=== PATIENT | female | born 1950 | race Caucasian/White ===

== ENCOUNTER → 2019-09-26 | Outpatient (CLI) | payer MEDICARE, BC | LOC: RAD 10:48 | DX: N18.3 Chronic kidney disease, stage 3 (moderate) (principal) ==

== ENCOUNTER → 2020-09-11 | Outpatient (CLI) | payer MEDICARE, BC | LOC: RAD 10:19 | DX: K76.0 Fatty (change of) liver, not elsewhere classified (principal); Z90.49 Acquired absence of other specified parts of digestive tract ==

== ENCOUNTER → 2020-12-03 | Outpatient (CLI) | payer MEDICARE, BC | LOC: RAD 09:59 | DX: N28.1 Cyst of kidney, acquired (principal); N39.0 Urinary tract infection, site not specified ==

== ENCOUNTER → 2021-02-13 | Outpatient (CLI) | payer MEDICARE, BC | LOC: RAD 13:45 | DX: D25.9 Leiomyoma of uterus, unspecified (principal) ==

== ENCOUNTER → 2021-06-22 | Outpatient (CLI) | payer MEDICARE, BC | LOC: RAD 11:00 → VAS 11:00 | DX: R06.00 Dyspnea, unspecified (principal) ==

== ENCOUNTER → 2021-07-20 | Outpatient (CLI) | payer MEDICARE, BC ==
[2021-07-20 12:51] LABS: ALBUMIN 4.2 g/dL (3.4-4.8); POTASSIUM 4.4 mmol/L (3.5-5.1)
[2021-07-20 12:53] LABS: CALCIUM 11.6 mg/dL (8.3-10.5)
== END ==
LOC: LAB 12:17
PROVIDERS: Internal Medicine Nephrology
DX: N18.32 Chronic kidney disease, stage 3b (principal); E83.52 Hypercalcemia

== ENCOUNTER → 2021-10-02 | Outpatient (CLI) | payer MEDICARE, BC ==
[2021-10-02 13:44] LABS: ALBUMIN 4.1 g/dL (3.4-4.8)
[2021-10-02 13:46] LABS: CALCIUM 12.4 mg/dL (8.3-10.5)
[2021-10-02 13:59] LABS: URINE APPEARANCE CLEAR; URINE BILIRUBIN NEGATIVE (NEGATIVE); URINE BLOOD NEGATIVE (NEGATIVE); URINE COLOR YELLOW; URINE GLUCOSE NEGATIVE (NEGATIVE); URINE KETONE NEGATIVE (NEGATIVE); URINE LEUKOCYTE ESTERASE TRACE (NEGATIVE); URINE NITRATE NEGATIVE (NEGATIVE); URINE PROTEIN(semi-quant) NEGATIVE (NEGATIVE); URINE UROBILINOGEN NORMAL (NORMAL)
[2021-10-03 00:07] LABS: PTH,INTACT 256.7 pg/mL (6.6-88.9)
== END ==
LOC: LAB 13:10
PROVIDERS: Physician Assistant
DX: N39.0 Urinary tract infection, site not specified (principal); N18.32 Chronic kidney disease, stage 3b; E83.52 Hypercalcemia

== ENCOUNTER → 2021-10-27 | Outpatient (CLI) | payer MEDICARE, BC ==
[2021-10-27 13:56] LABS: POTASSIUM 4.6 mmol/L (3.5-5.1)
[2021-10-27 13:57] LABS: CALCIUM 11.9 mg/dL (8.3-10.5)
[2021-10-27 14:04] LABS: MAGNESIUM 1.89 mg/dL (1.60-2.60)
== END ==
LOC: LAB 13:29
PROVIDERS: Internal Medicine Adult Congenital Heart Disease
DX: I10 Essential (primary) hypertension (principal)

== ENCOUNTER → 2022-01-28 | Outpatient (CLI) | payer MEDICARE, BC ==
[2022-01-28 14:51] LABS: ALBUMIN 4.1 g/dL (3.4-4.8)
[2022-02-01 13:21] LABS: POTASSIUM 4.7 mmol/L (3.5-5.1)
[2022-02-01 13:22] LABS: CALCIUM 11.7 mg/dL (8.3-10.5)
== END ==
LOC: LAB 14:32
PROVIDERS: Internal Medicine Nephrology
DX: Z01.89 Encounter for other specified special examinations (principal)

== ENCOUNTER → 2022-01-29 | Outpatient (CLI) | payer MEDICARE, BC | LOC: LAB 09:05 | DX: Z01.89 Encounter for other specified special examinations (principal) ==

== ENCOUNTER 2023-10-20 08:00 | Outpatient (RCR) | payer MEDICARE, BC | END 2023-11-04 23:59 | disposition home or self-care (01) | LOC: PT 08:00 | DX: M25.561 Pain in right knee (principal); M25.562 Pain in left knee ==

== ENCOUNTER 2023-11-25 13:17 | Inpatient (IN) | payer MEDICARE, BC ==
[~2023-11-25] VITALS: Ht 162.6 cm; Wt 117.0 kg
[2023-11-25 18:13] VITALS: BP 129/72
--- NOTE | 2023-11-25 18:16 | NUR ---
PATIENT ARRIVES TO [facility] VIA TRANSPORT TEAM AT 1640. PATIENT WHEELED INTO ROOM 306 AND WAS ASSISTED INTO CHAIR WITH 2 PERSON ASSISTANCE, GAIT BELT AND WALKER. PATIENT HAD PARATHYROIDECTOMY AT [facility] AND HAS A SMALL SURGICAL INCISION THAT IS OPEN TO AIR WITH NO REDNESS, DRAINAGE OR OPEN AREAS, SMALL AMOUNT OF BRUISING AROUND INCISION. IVERSON WAS REMOVED AT [facility], INSTRUCTED PATIENT AND FAMILY WE WOULD BLADDER SCAN PRN. PATIENT REPORTS LAST BM WAS 11/19, DISCUSSED WITH DR. MEADE, SHE STATED SHE WOULD START BOWEL MEDICATIONS. FAMILY DISCUSSED A FLUID RESTRICTION A PHYSICIAN HAD PUT ON PATIENT, DR. MEADE WAS TO CHECK ON THIS. PT RESTING IN CHAIR WITH FAMILY AT BEDSIDE, CALL LIGHT WITHIN REACH
[2023-11-25] MEDS ORDERED: Acetaminophen 325 MG TAB PO PRN ×2 (18:30→20:00)
[2023-11-25] MEDS ORDERED: Naloxone 0.4 MG/ML VIAL IV PRN (18:30)
[2023-11-25] MEDS ORDERED: Polyethylene Glycol 3350 Powder 17 GM PACKET PO PRN (18:30)
[2023-11-25] MEDS ORDERED: oxyCODONE 5 MG TAB PO PRN (18:30)
[2023-11-25] MEDS ORDERED: Acetaminophen 500 MG TAB PO SCH (19:20)
[2023-11-25] MEDS ORDERED: TYLENOL 325MG325 MG PO (19:21)
[2023-11-25] MEDS ORDERED: NORCO 325 MG-51 TA1 PO (19:22)
[2023-11-25] MEDS ORDERED: INSULIN LI100 UNIT/4 SQ (19:23)
[2023-11-25] MEDS ORDERED: NORVASC 10MG10 MG PO (19:23)
[2023-11-25] MEDS ORDERED: COREG 25MG25 MG/TAB PO (19:24)
[2023-11-25] MEDS ORDERED: LASIX40 M1 PO (19:24)
[2023-11-25] MEDS ORDERED: HYDRALAZINE HYD50 MG PO (19:24)
[2023-11-25] MEDS ORDERED: NOVOLOG 100U100 U/ML SQ (19:40)
[2023-11-25] MEDS ORDERED: ASPIRIN 81M81 MG/TA2 PO (19:42)
[2023-11-25] MEDS ORDERED: LEVEMIR100 U/M1 SC (19:42)
[2023-11-25] MEDS ORDERED: COL-RITE100 M1 PO (19:43)
[2023-11-25] MEDS ORDERED: BIOTIN1000 MC1 PO (19:43)
[2023-11-25] MEDS ORDERED: SYNTHROID0.075 MG PO (19:44)
[2023-11-25] MEDS ORDERED: FOLIC ACID1 MG PO (19:44)
[2023-11-25] MEDS ORDERED: COZAAR100 MG PO (19:45)
[2023-11-25] MEDS ORDERED: CRESTOR5 MG PO (19:45)
[2023-11-25] MEDS ORDERED: PRILOSEC 20MG20 MG PO (19:45)
[2023-11-25] MEDS ORDERED: MAGNESIUM400 MG PO (19:45)
[2023-11-25] MEDS ORDERED: VITAMIN B-121000 MC2 PO (19:46)
[2023-11-25] MEDS ORDERED: WELLBUTRIN XL150 M2 PO (19:47)
[2023-11-25] MEDS ORDERED: ALLOPURINOL300 M1 PO (19:47)
[2023-11-25] MEDS ORDERED: VITAMIN D21250 MCG PO (19:47)
[2023-11-25] MEDS ORDERED: Glucagon 1 MG VIAL IM PRN (20:00)
[2023-11-25] MEDS ORDERED: hydrALAZINE 25 MG TAB PO SCH (20:00)
[2023-11-25] MEDS ORDERED: Dextrose 50% Water 25 GM/50 ML SYRINGE IV PRN (20:00)
[2023-11-25] MEDS ORDERED: Dextrose (Glucose) 15 GM (4 x 3.75 GM) Chewable TAB PACK PO PRN (20:00)
[2023-11-25] MEDS ORDERED: Carvedilol 6.25 MG TAB PO SCH (21:00)
[2023-11-25] MEDS ORDERED: Docusate Sodium 100 MG CAP PO SCH ×2 (21:00)
[2023-11-26 05:45] VITALS: BP 146/82
[2023-11-26] MEDS ORDERED: Insulin Aspart (NovoLOG) SQ SCH (07:00)
[2023-11-26] MEDS ORDERED: Magnesium Oxide 400 MG TAB PO SCH (08:00)
[2023-11-26] MEDS ORDERED: Furosemide 40 MG TAB PO SCH (09:00)
[2023-11-26] MEDS ORDERED: Ergocalciferol 1.25 MG (50,000 UNITS) CAPSULE PO SCH (09:00)
[2023-11-26] MEDS ORDERED: amLODIPine 5 MG TAB PO SCH (09:00)
[2023-11-26] MEDS ORDERED: Folic Acid 1 MG TAB PO SCH (09:00)
[2023-11-26] MEDS ORDERED: Losartan 50 MG TAB PO SCH (09:00)
--- NOTE | 2023-11-26 11:43 | NUR ---
SPA HOST's assist pt to sitting EOB. Pt refusing to stand/walk. Several requests made to pt to ambulate to BR so brief could be changed, empty bladder then sit up in chair for lunch. Pt refuses any movement, requesting to lay back down. Refusing to have brief changed. Explain to pt that she is here for rehab, not to lay in bed. Says she just wants to go home. Explain that if she is unable to walk or care for self, will be difficult to return home. After much pleading and prompting, this RN stands pt at bedside then 2 assist to keep pt standing while third person changed brief. Pt refused to stand upright, keeping butt pushed back toward bed. Once changed, sat pt on EOB. Pt then denies wanting to lay down. Is left sitting EOB, call light and belongings in reach, bed alarm on. Notified provider of pt refusal. Provider agrees to come to bedside to speak with pt.
[2023-11-26 16:56] VITALS: BP 149/72
[2023-11-26] MEDS ORDERED: Lidocaine 2% Viscous 15 ML UNIT DOSE CUP MM PRN (17:45)
--- NOTE | 2023-11-26 18:13 | NUR ---
Pt ambulates to BR this afternoon, large BM. Up to recliner for dinner. Pt c/o sore throat, viscous lidocaine given. Pt sister in to visit.
--- NOTE | 2023-11-26 19:00 | NUR ---
RECEIVED REPORT FROM LAINEY RICO
--- NOTE | 2023-11-26 22:15 | NUR ---
PATIENT HAS BEEN UP TO TOILET WALKING WITH WALKER AND ONE ASSIST. A&O X 4 AT THIS TIME. REPORTS ONLY PAIN IS TO THROAT. TAKES MEDS WHOLE. CALL LIGHT IN REACH. BED ALARM ON
--- NOTE | 2023-11-27 00:11 | NUR ---
PATIENT RESTING QUIETLY IN BED WITH EYES CLOSED. BREATHING UNLABORED ON RA. CALL LIGHT IN REACH
--- NOTE | 2023-11-27 04:19 | NUR ---
PATIENT UP TO TOILET, AMBULATING WITH STAFF. ONCE BACK TO BED, SHE RESISTED ROLLING FROM SIDE TO SIDE TO ASSIST WITH STRAIGHTENING OUT UNDERPADS. STATES SHE UNDERSTANDS WHAT WE WERE DOING, BUT ONCE ATTEMPTS TO ROLL STARTED SHE WOULD YELL OUT "NO NO" AND ROLL SELF BACK. CALL LIGHT IN REACH. BED ALARM ON.
[2023-11-27 06:05] VITALS: BP 147/53
--- NOTE | 2023-11-27 07:09 | NUR ---
REPORT TO LAINEY PUGA
[2023-11-27] MEDS ORDERED: Insulin Aspart (NovoLOG) SQ SCH (07:30)
[2023-11-27] MEDS ORDERED: Carvedilol 25 MG TAB PO SCH (17:16)
[2023-11-27 18:03] VITALS: BP 133/66
--- NOTE | 2023-11-27 19:15 | NUR ---
RECEIVED REPORT FROM LAINEY PUGA
--- NOTE | 2023-11-28 01:44 | NUR ---
PATIENT RESTING QUIETLY IN BED. BREATHING UNLABORED ON RA. CALL LIGHT IN REACH.
--- NOTE | 2023-11-28 03:19 | NUR ---
PATIENT RESTING QUIETLY IN BED. WAKES EASILY FOR VITALS AND MED PASS. CALL LIGHT IN REACH. BED ALARM ON
[2023-11-28 06:09] VITALS: BP 139/70
--- NOTE | 2023-11-28 07:15 | NUR ---
REPORT RECEIVED FROM CLEMENTINE RETANA.
--- NOTE | 2023-11-28 07:38 | NUR ---
SITTING IN CHAIR. REPORTS HAVING A DIFFICULT NIGHT. LAST LOOKED AT THE CLOCK AT 0330. MENTIONS HAVING TROUBLE TURNING OFF BRAIN. EXPRESSES DESIRE TO GO HOME. PROVIDES LITTLE EYE CONTACT DURING CONVERSATION. REPORTS DISCOMFORT TO RT ANKLE; PREVIOUS FX SURGICAL REPAIR TO AREA. DISCUSS PAIN CONTROL AND WILL PROVIDE PRN APAP TO START. CALL LIGHT IN REACH AND CHAIR ALARM INTACT.
[2023-11-28] MEDS ORDERED: Carvedilol 6.25 MG TAB PO SCH (09:00)
--- NOTE | 2023-11-28 09:13 | NUR ---
COLACE, COZAAR, SYNTHROID, VIT B12 ARE OUT OF STOCK. JEFF DEAN NOTIFIED. ORDERS TO MONITOR BP THROUGHOUT THE DAY.
--- NOTE | 2023-11-28 12:20 | NUR ---
SITTING IN RECLINER EATING LUNCH. SHE REPORTS HER DAY IS STARTING TO IMPROVE A BIT.
[2023-11-28 12:24] VITALS: BP 161/72
--- NOTE | 2023-11-28 14:12 | NUR ---
SPEAK TO JEFF DEAN TO NOTIFY HYDRALAZINE ALSO OUT OF STOCK EARLIER TODAY. LINCOLN CURRENTLY BEING RESTOCKED. SHE APPROVES FOR LEVOTHYROXINE, LOSARTAN, AND HYDRALAZINE TO BE GIVEN ONCE AVAILABLE.
--- NOTE | 2023-11-28 15:40 | NUR ---
IN BED AND REQUESTS TO GO TO BATHROOM. REQUIRES STAFF ASSIST TO MOVE FEET OFF BED, BUT THEN ABLE TO RAISE TO SITTING POSITION INDEPENDENTLY. REPORTS FEELING A BIT UNWELL, BUT DOES NOT CLARIFY WHEN ASKED. AFTER 2 ATTEMPTS TO RISE FROM BED, PATIENT STATES "PERHAPS I WILL JUST PEE RIGHT HERE." ENCOURAGE PATIENT BY TELLING HER THAT WILL NOT GET HER TO HER GOAL OF RETURNING HOME. PT THEN RISES TO A STANDING POSITION AND AMBULATES TO BATHROOM USING WALKER; GAIT STEADY. INCONTINENT VOID. POSITION IN RECLINER PER REQUEST. SPRITE DELIVERED.
[2023-11-28 17:27] VITALS: BP 145/76
--- NOTE | 2023-11-28 17:30 | NUR ---
TAKES MEDICATION WITHOUT DIFFICULTY. VOICES FRUSTRATION WITH SUPPER BECAUSE HER MEAL WAS INCORRECT- REPORTS WANTING A TURKEY SANDWICH AND RECEIVED ROAST BEEF INSTEAD. THEN CONTINUES TO SAY SHE ALSO DISLIKES CHOCOLATE PUDDING. ASSIST TO BED. REQUIRES ASSISTANCE TO PLACE LE ON BED. POSITION PER COMFORT; CALL LIGHT IN REACH.
--- NOTE | 2023-11-28 19:04 | NUR ---
REPORT PROVIDED TO KRISSY.
--- NOTE | 2023-11-28 19:06 | NUR ---
RECEIVED REPORT FROM STEFFI ERTANA
--- NOTE | 2023-11-28 19:52 | NUR ---
PT ALERT AND ORIENTED AT THIS TIME, PT REPORTS BEING "GRUMPY" BECAUSE SHE IS HERE IN THE HOSPITAL AND NOT AT HOME, PT REPORTS MINIMAL PAIN AND DENIES NEEDING ANY PAIN INTERVENTIONS. PT STATES THAT THE ONLY THING THAT WILL MAKE HER NOT GRUMPY IS GOING HOME. SHIFT REPORT SHARED THAT PT REQUESTED SOME MELATONIN TO HELP HER SLEEP, PROVIDER MADHAVI NOTIFIED. PT ON A 1500 ML FLUID RESTRICTION. ASSESSMENT PERFORMED, PT CURRENTLY RESTING IN BED WITH 3 BED RAILS UP, PT HAS CALL LIGHT IN REACH AND DENIES ANY NEEDS OR FURTHER QUESTIONS.
[2023-11-29 05:54] VITALS: BP 156/74
--- NOTE | 2023-11-29 07:12 | NUR ---
REPORT GIVEN TO ALONZO RETANA
[2023-11-29 10:11] LABS: TOTAL PROTEIN 6.3 g/dL (6.2-8.1)
[2023-11-29 10:18] LABS: ALBUMIN 3.8 g/dL (3.4-4.8)
[2023-11-29 10:20] LABS: CALCIUM 9.5 mg/dL (8.3-10.5)
[2023-11-29 10:23] LABS: TOTAL BILIRUBIN 0.4 mg/dL (0.2-1.2)
[2023-11-29 10:26] LABS: BASO # 0.01 K/mm3 (0.02-0.10); EOS # 0.16 K/mm3 (0.04-0.40); EOS % 2.2 % (1.0-5.0); HEMATOCRIT 37.6 % (37.0-47.0); HEMOGLOBIN 12.2 g/dL (12.5-16.0); LYMPH# 1.34 K/mm3 (1.50-4.00); MEAN CELL VOLUME 91 fl (78-100); MEAN CORPUSCULAR HEMOGLOBIN 30 pg (27-31); MEAN CORPUSCULAR HGB CONC 32 g/dL (33-37); MEAN PLATELET VOLUME 11.1 fl (7.4-10.4); MONO # 0.61 K/mm3 (0.20-0.80); NEU # 5.13 K/mm3 (1.40-6.50); PLATELET COUNT 246 K/mm3 (130-400); RED BLOOD COUNT 4.12 M/mm3 (4.10-5.30); RED CELL DISTRIBUTION WIDTH 13.3 % (11.5-14.5); WHITE BLOOD COUNT 7.3 K/mm3 (4.8-10.8)
[2023-11-29 17:42] VITALS: BP 164/80
--- NOTE | 2023-11-29 19:00 | NUR ---
received report from maria antonia restrepo
--- NOTE | 2023-11-29 19:44 | NUR ---
Pt alert and oriented x4, pt resting in bed. pt call light found disconected from the wall. Call light plugged back in, pt requested another blanket. assessment perfrormed without complication, pt denies needing any further items and denies any questions. call light in reach, bed in lowest position and alamred.
[2023-11-29] MEDS ORDERED: Melatonin 3 MG TAB PO ONE (22:45)
[2023-11-30 04:54] LABS: URINE APPEARANCE SLIGHTLY CLOUDY (CLEAR); URINE COLOR YELLOW (YELLOW)
[2023-11-30 04:56] LABS: PH-URINE 6.5 (5.0 - 8.0); URINE BILIRUBIN NEGATIVE (NEGATIVE); URINE BLOOD NEGATIVE (NEGATIVE); URINE GLUCOSE NEGATIVE (NEGATIVE); URINE KETONE NEGATIVE (NEGATIVE); URINE LEUKOCYTE ESTERASE NEGATIVE (NEGATIVE); URINE NITRATE NEGATIVE (NEGATIVE); URINE PROTEIN(semi-quant) 1+ (NEGATIVE)
[2023-11-30 06:07] VITALS: BP 129/78
--- NOTE | 2023-11-30 07:00 | NUR ---
REPORT RECEIVED FROM LAINEY REY
--- NOTE | 2023-11-30 07:13 | NUR ---
report to [facility]
--- NOTE | 2023-11-30 16:00 | NUR ---
recieved report from nubia marie
--- NOTE | 2023-11-30 16:10 | NUR ---
REPORT GIVEN TO LAINEY REY
[2023-11-30 17:56] VITALS: BP 167/78
--- NOTE | 2023-11-30 19:07 | NUR ---
repor given to jose r restrepo
[2023-11-30] MEDS ORDERED: Melatonin 3 MG TAB PO SCH (20:00)
--- NOTE | 2023-11-30 23:03 | NUR ---
Pt request an ice pack for her right ankle, when asked when her ankle started to boither her she reported 40 yreas ago. Ice pack provided for her right ankle
[2023-12-01 06:00] VITALS: BP 128/52
[2023-12-01 13:46] VITALS: BP 117/59
[2023-12-01 13:48] VITALS: BP 99/66
[2023-12-01 18:00] VITALS: BP 146/70
--- NOTE | 2023-12-01 18:59 | NUR ---
Pt Ox4, VSS, c/o chronic pain to R ankle. Denies need for anything stronger than sched tylenol. Has poor appetite, struggles with fluid restriction. Refused to work with AM therapy r/t feeling dizzy and nauseated. Checked sit to stand orthos: 117/59 sitting to 99/66 standing. Denied feeling dizzy, lightheaded or nauseated with ortho check. Notified provider, no new orders. FSBS 62 this AM. Held levemir and SSI, notified provider. Levemir order changed. New dose to start tonight.
--- NOTE | 2023-12-01 20:00 | NUR ---
Report received from Rose RETANA. Patient rests supine in bed reading a book. A/O x4. Rates pain to R ankle 11/13. Requests Tylenol, scheduled given with HS medications. Accu-check 207. 20 Units Levemier given SQ in DARLINE per order. Assessment completed. Helps reposition self up in bed. HOB elevated. Denies wants or needs. Remains on 1500 ML FR. Bed alarm on. Call light in reach.
--- NOTE | 2023-12-01 21:10 | NUR ---
Patient refusing SCD's.
--- NOTE | 2023-12-02 03:50 | NUR ---
Sleeping well. Awakened for scheduled PO medications. Takes easily whole with water. CAPTION WRITER's in to assist to BR and obtain V/S.
[2023-12-02 05:42] VITALS: BP 149/69
--- NOTE | 2023-12-02 07:08 | NUR ---
Report to Jocelyn RETANA.
[2023-12-02 17:47] VITALS: BP 155/69
--- NOTE | 2023-12-02 19:00 | NUR ---
Report received from Jocelyn RETANA.
[2023-12-02] MEDS ORDERED: Acetaminophen 500 MG TAB PO SCH (22:00)
--- NOTE | 2023-12-03 | NUR ---
Patient requested ice back to right ankle for achyness and applied. States ice is helpful. Declines SCDS this noc.
--- NOTE | 2023-12-03 04:30 | NUR ---
Patient incontinent of urine through brief. Up to the bathroom and back to bed. Assist required with LLE into bed. Alert and oriented. States she slept well this noc. Linen change done.
[2023-12-03 05:56] VITALS: BP 150/70
--- NOTE | 2023-12-03 09:45 | NUR ---
Pt requests to eat breakfast in bed. Ambulates to BR without difficulty with 1A and walker. Reports chronic pain to R ankle, denies need for ice/meds at this time. Upon getting up from toilet reports feeling dizzy intermittently. Also has c/o feeling bloated, no BM at this time. BLE 2-3+ edema. Ambulates to recliner. Feet elevated, all belongings and call light within reach, chair alarm on.
[2023-12-03 14:03] VITALS: BP 149/60
--- NOTE | 2023-12-03 19:00 | NUR ---
Report received from Rose RETANA.
--- NOTE | 2023-12-03 20:50 | NUR ---
Patient ambulated in hallway accompanied by THRESHING MACHINE OPERATOR and back to room. Glucerna given for snack. HS meds all reviewed and given. Ice pack applied to right ankle for achyness. Alert and oriented.
[2023-12-03] MEDS ORDERED: Melatonin 3 MG TAB PO ONE (23:45)
--- NOTE | 2023-12-04 05:09 | NUR ---
awakened for am med. States "little bit" to getting sleep this noc. Denies needs.
[2023-12-04 06:25] VITALS: BP 138/72
[2023-12-04 17:09] VITALS: BP 144/77
--- NOTE | 2023-12-04 19:00 | NUR ---
Report received from Caryl RETANA.
--- NOTE | 2023-12-04 21:00 | NUR ---
HS meds along with insulin reviewed and given. Reviewed signs and symptoms of hypoglycemia. Patient states she doesn't remember having symptoms like that before. Alert and oriented x4. To question if she had a good day simply stated "No I didn't" doesn't give specifics. Denies pain at this time.
--- NOTE | 2023-12-05 05:10 | NUR ---
Patient awakened for am meds. Reports being cold and extra blanket given. Skin warm but moist. Accu check done and is 102. States "little low for me". Snack of grahams and peanut butter given. States she slept some this noc.
[2023-12-05 05:34] VITALS: BP 168/77
--- NOTE | 2023-12-05 07:07 | NUR ---
REPORT RECEIVED FROM FALLON RETANA.
--- NOTE | 2023-12-05 07:45 | NUR ---
SITTING IN RECLINER WITH TV ON. DENIES PAIN. NOT TALKATIVE. WHEN ASKED HOW SHE SLEPT OR HOW SHE FEELS PRESENTLY, PATIENT REPORTS "I DON'T KNOW YET." DOES NOT LOOK AT THIS NURSE WHILE CONVERSING, CONTINUES TO LOOK AT TV. ALLOWS ASSESSMENT TO BE COMPLETED.
--- NOTE | 2023-12-05 08:30 | NUR ---
PATIENT LESS THAN IMPRESSED WITH BREAKFAST. TAKES MEDICATION WITHOUT DIFFICULTY. MORE TALKATIVE AT THIS TIME AND EVEN ALLOWS A SMILE. WOULD LIKE A REFILL OF HER COFFEE, BUT ACKNOWLEDGES HER FLUID RESTRICTION WILL NOT ALLOW THAT. OR IF IT DOES, SHE IS NOT WILLING TO TRADE OUT AN AFTERNOON/EVENING BEVERAGE FOR MORE COFFEE.
--- NOTE | 2023-12-05 15:19 | NUR ---
PARTICIPATES WITH OT IN ROOM.
[2023-12-05 17:13] VITALS: BP 153/81
--- NOTE | 2023-12-05 17:24 | NUR ---
VISITOR X2 PRESENT IN ROOM. PATIENT TALKATIVE AND CHEERFUL.
--- NOTE | 2023-12-05 19:11 | NUR ---
REPORT PROVIDED TO FALLON RETANA.
--- NOTE | 2023-12-05 20:30 | NUR ---
Patient resting in bed awake. Alert and oriented x 4. HS meds reviewed and given.
[2023-12-05] MEDS ORDERED: hydrALAZINE 25 MG TAB PO SCH (21:00)
--- NOTE | 2023-12-06 05:23 | NUR ---
patient states "slept some" this noc.
[2023-12-06 06:05] VITALS: BP 151/74
--- NOTE | 2023-12-06 07:00 | NUR ---
REPORT RECEIVED FROM LAINEY LEHMAN
--- NOTE | 2023-12-06 13:00 | NUR ---
REPORT TO LAINEY LOPEZ
[2023-12-06 17:11] VITALS: BP 145/69
--- NOTE | 2023-12-06 19:06 | NUR ---
report recieved from elizabeth restrepo
--- NOTE | 2023-12-06 22:06 | NUR ---
pt alert and oriented, pt states she is very ready to return home. pt reports 6/10 pain, tylenol given with evening medications. Assessment performed and medications delivered without complication. Pt in bed with call light in reach, no furhter needs or questions at this time.
[2023-12-07 05:28] VITALS: BP 146/69
--- NOTE | 2023-12-07 06:49 | NUR ---
report given to james restrepo
[2023-12-07 10:04] LABS: BASO # 0.01 K/mm3 (0.02-0.10); EOS % 2.7 % (1.0-5.0); HEMATOCRIT 36.7 % (37.0-47.0); HEMOGLOBIN 11.6 g/dL (12.5-16.0); LYMPH# 1.35 K/mm3 (1.50-4.00); MEAN CELL VOLUME 92 fl (78-100); MEAN CORPUSCULAR HEMOGLOBIN 29 pg (27-31); MEAN CORPUSCULAR HGB CONC 32 g/dL (33-37); MEAN PLATELET VOLUME 10.3 fl (7.4-10.4); MONO # 0.63 K/mm3 (0.20-0.80); NEU # 5.14 K/mm3 (1.40-6.50); PLATELET COUNT 212 K/mm3 (130-400); RED BLOOD COUNT 3.99 M/mm3 (4.10-5.30); RED CELL DISTRIBUTION WIDTH 12.6 % (11.5-14.5); WHITE BLOOD COUNT 7.3 K/mm3 (4.8-10.8)
[2023-12-07 10:12] LABS: ALBUMIN 3.7 g/dL (3.4-4.8)
[2023-12-07 10:14] LABS: CALCIUM 9.2 mg/dL (8.3-10.5)
[2023-12-07 10:17] LABS: TOTAL BILIRUBIN 0.4 mg/dL (0.2-1.2)
[2023-12-07] MEDS ORDERED: Albuterol 90 MCG/PUFF MDI IH ONE (11:00)
--- NOTE | 2023-12-07 13:58 | NUR ---
Gave [facility] Star review list of home health to Abbey. She signed the 2 day notice and waived two days. She wants to go home today. Dr. Mondragon talked with her regarding her labs. She will stay until labs have improved. Assuming she will go home tomorrow if labs improve. Gave DME list. She will need to contact the companies to see if they will come to her apartment and review and measure for a bed rail. Medicare will likely not cover this item.
[2023-12-07 16:32] VITALS: BP 128/66
[2023-12-07 17:43] LABS: CALCIUM 9.3 mg/dL (8.3-10.5)
[2023-12-07] MEDS ORDERED: Albuterol 90 MCG/PUFF MDI IH SCH (18:44)
--- NOTE | 2023-12-07 18:53 | NUR ---
REPORT RECIEVED FROM ALONZO RETANA
--- NOTE | 2023-12-07 19:21 | NUR ---
pt alert and oriented x4, pt in chair for assessment. 1 + edema noted to left lower leg, legs elevated in chair. Pt reports 2/10 pain at this time. Assessment completed without complication, pt to restroom with assistance from this nurse. Pt assisted back to bed by Joya SMITH, no further questions or concerns at this time. Pt very ready for discharge tomorrow.
[2023-12-08 05:37] VITALS: BP 156/73
[2023-12-08 06:50] LABS: BASO # 0.01 K/mm3 (0.02-0.10); EOS # 0.21 K/mm3 (0.04-0.40); HEMATOCRIT 34.3 % (37.0-47.0); HEMOGLOBIN 11.1 g/dL (12.5-16.0); LYMPH# 1.51 K/mm3 (1.50-4.00); MEAN CELL VOLUME 92 fl (78-100); MEAN CORPUSCULAR HEMOGLOBIN 30 pg (27-31); MEAN CORPUSCULAR HGB CONC 32 g/dL (33-37); MEAN PLATELET VOLUME 10.6 fl (7.4-10.4); MONO # 0.77 K/mm3 (0.20-0.80); NEU # 4.47 K/mm3 (1.40-6.50); PLATELET COUNT 206 K/mm3 (130-400); RED BLOOD COUNT 3.74 M/mm3 (4.10-5.30); RED CELL DISTRIBUTION WIDTH 12.6 % (11.5-14.5)
[2023-12-08 06:54] LABS: ALBUMIN 3.4 g/dL (3.4-4.8)
[2023-12-08 06:56] LABS: CALCIUM 8.9 mg/dL (8.3-10.5)
[2023-12-08 06:57] LABS: TOTAL PROTEIN 5.6 g/dL (6.2-8.1)
--- NOTE | 2023-12-08 06:57 | NUR ---
report given to thalia llanes
[2023-12-08 06:59] LABS: TOTAL BILIRUBIN 0.3 mg/dL (0.2-1.2)
--- NOTE | 2023-12-08 07:00 | NUR ---
Report received and care assumed. Pt resting in bed with eyes closed and no signs of distress or discomfort noted at this time. Call light in reach.
--- NOTE | 2023-12-08 07:53 | NUR ---
Pt states some ankle and lower leg pain. States that this type of pain occurs regularly for her, and ice usually helps. Ice pack provided.
--- NOTE | 2023-12-08 11:55 | NUR ---
Report given to Braxton Babcock and care transferred. Pt resting in bed, call light in reach.
--- NOTE | 2023-12-08 16:10 | NUR ---
Pt was discharge to go home today. Family initially said they would be here in 30 min. Jannette called back and said she was not coming to pick her up today no one was home to be with her and they do not feel she is safe to go home. This cm came in and family was coming to talk with her. Abbey was yelling at them and they were yelling at each other. Abbey said she wanted to be anywhere but here. Leonardo said what about [facility]. She said anywhere but here. This medical social consultant called sang at [facility]. sent clinical to [facility]. Advised family that [facility] has a room. Advised family that it would not be today for the transfer. This CM will come back tomorrow to make full arrangements.
--- NOTE | 2023-12-08 16:14 | NUR ---
PATIENT HAD ORDERS TO BE DISCHARGED. NURSE ASKED PATIENT IF SHE NOTIFIED HER DECKHAND OYSTER DREDGE/BROTHER. SHE CALLED BROTHER WHILE NURSE WAS IN ROOM AND SAID HER BROTHER CAN HEAD THIS WAY IN 30 MINS. NURSE PROCEDED WITH DISCHARGE INSTRUCTIONS. WHILE SPEAKING WITH PATIENT, PATIENT'S SISTER CALLED AND THEY BEGAN TO ARGUE ABOUT PATIENT LEAVING. DISCHARGE INSTRUCTIONS COMPLETED. PATIENT'S SISTER CALLED AND ASKED IF IT WAS TRUE PATIENT WAS BEING DISCHARGED. SISTER DIDN'T THINK THAT PATIENT WAS ABLE TO TAKE CARE OF HERSELF. THIS NURSE THEN CALLED BROTHER WHO THOUGHT THE SAME THING AND DID NOT WANT PATIENT TO BE DISCHARGED. PATIENT WAS UPSET WHEN SHE WAS UPDATED ABOUT FAMILY NOT THINKING SHE SHOULD BE DISCHARGED. SHE LIVES IN HER BROTHER'S BASEMENT. SOCIAL SERVICE WAS CALLED ABOUT THE SITUATION AND SHE CAME IN TO SPEAK WITH PATIENT. BROTHER AND ALSO CAME IN TO SPEAK WITH PATIENT. ALL 3 SPOKE WITH PATIENT, AND IT WAS DECIDED THAT PATIENT STAY AND WILL PLAN ON DISCHARGING TOMORROW TO ASSISTED LIVING.
[2023-12-08 18:00] VITALS: BP 131/68
--- NOTE | 2023-12-08 18:28 | NUR ---
DR. MEADE CALLED AND REPORTED THAT PATIENT HAS BEEN ACCEPTED TO [facility] AND CAN MICHAEL CAN TAKE HER TOMORROW MORNING.
--- NOTE | 2023-12-08 19:04 | NUR ---
received report from Syl restrepo
--- NOTE | 2023-12-08 19:37 | NUR ---
Pt alert and oriented x4, pt dissapointed about not going home today. pt resting in bed at this time, pt reports 4/10 pain to right ankle which is a chronic issue for the pt. Ice requested and delivered by [facility]. pt assessed without complication, no furhter needs expressed at this time. Pt now resting in bed, bed in lowest position, alarmed and call light in reach.
[2023-12-09 05:30] VITALS: BP 154/85
--- NOTE | 2023-12-09 06:55 | NUR ---
report given to trung restrepo
[2023-12-09 08:26] VITALS: BP 154/85
--- NOTE | 2023-12-09 08:26 | NUR ---
CARPENTRY TEACHER NOTIFIED THIS RN OF BLOOD SUGAR OF 69. PEANUT BUTTER SNACK AND BREAKFAST TRAY TAKEN TO PATIENT. VERONICA AND SAIDA HELD THIS AM.
--- NOTE | 2023-12-09 08:36 | NUR ---
Order and discharge packet faxed to [facility]. Anticipating dc at 9 am. Recommend will transport. Left voice messages with Leonardo and Aixa's phone. No return phone call from either.
--- NOTE | 2023-12-09 09:07 | NUR ---
[facility] is here to get Abbey. Advised Abbey that they were here and she impatically says she is not going. This CM called Leonardo and he did answer this time, I advised to him that Abbey says she is not going. He said alright I will be up in a little bit.
--- NOTE | 2023-12-09 09:32 | NUR ---
Jannette and Leonardo are here Yelling between Amy an Abbey. Abbey states I cant stay here because you have already burned this bridge.
--- NOTE | 2023-12-09 09:55 | NUR ---
[facility] SHOWED UP AT 0900 TO TAKE PATIENT. PATIENT STATED SHE WAS NOT GOING TO [facility] AND JUST WANTED TO GO HOME. PTS FAMILY DISCUSSED DISCHARGE WITH PATIENT TRYING TO CONVINCE HER IT WILL BE SAFER TO BE AT [facility]. PT STILL NOT AGREEABLE TO THIS PLAN SO FAMILY AND PATIENT ULTIMATELY DECIDED PT WOULD DISCHARGE TO HOME. DISCHARGE INSTRUCTIONS AND HOME MEDICATIONS GIVEN TO PATIENT. PATIENT AMBULATED OUT OF [facility] WITH FAMILY TO PRIVATE VEHICLE.
--- NOTE | 2023-12-09 09:59 | NUR ---
Patient leaving walking via walker down the jasmine to Radhika's car. Face to Face signed by Eboni. THis CM will get [facility] if she goes home. This CM has not cancelled becky aly's sprinkler driver or the admission at this time. Due to the confusion of all involved. Will wait until the discharged patient is in the family car and leavs the propery. Then calls will be made to others.
--- NOTE | 2023-12-12 11:00 | NUR ---
Called [facility] and she has been set up with them on Tuesday. December,.
== END 2023-12-09 10:00 | disposition home health service (06) | DRG 948 ==
LOC: MED/SURG 13:17
PROVIDERS: Family Medicine; ADMIT Family Medicine
DX: R53.81 Other malaise (principal); I24.89 Other forms of acute ischemic heart disease; E11.22 Type 2 diabetes mellitus with diabetic chronic kidney disease; N18.32 Chronic kidney disease, stage 3b; E11.42 Type 2 diabetes mellitus with diabetic polyneuropathy; G47.33 Obstructive sleep apnea (adult) (pediatric); M19.90 Unspecified osteoarthritis, unspecified site; E03.9 Hypothyroidism, unspecified; Z66 Do not resuscitate; E83.52 Hypercalcemia; K21.9 Gastro-esophageal reflux disease without esophagitis; M10.9 Gout, unspecified; F32.A Depression, unspecified; Z79.890 Hormone replacement therapy; Z79.4 Long term (current) use of insulin; Z90.89 Acquired absence of other organs
CPT/HCPCS: A9270; J1815

== ENCOUNTER → 2024-07-02 | Outpatient (CLI) | payer MEDICARE, BC ==
[~2024-07-02] MED LIST: ALLOPURINOL300 M1 PO; ASPIRIN 81M81 MG/TA2 PO; BIOTIN1000 MC1 PO; COL-RITE100 M1 PO; COREG 25MG25 MG/TAB PO; COZAAR100 MG PO; CRESTOR5 MG PO; FOLIC ACID1 MG PO; HYDRALAZINE HYD50 MG PO; INSULIN LI100 UNIT/4 SQ; LASIX40 M1 PO; LEVEMIR100 U/M1 SC; MAGNESIUM400 MG PO; NORCO 325 MG-51 TA1 PO; NORVASC 10MG10 MG PO; NOVOLOG 100U100 U/ML SQ; PRILOSEC 20MG20 MG PO; SYNTHROID0.075 MG PO; TYLENOL 325MG325 MG PO; VITAMIN B-121000 MC2 PO; VITAMIN D21250 MCG PO; WELLBUTRIN XL150 M2 PO
[2024-07-02 17:23] LABS: URINE APPEARANCE CLOUDY (CLEAR); URINE BILIRUBIN NEGATIVE (NEGATIVE); URINE BLOOD 1+ (NEGATIVE); URINE COLOR YELLOW (YELLOW); URINE GLUCOSE NEGATIVE (NEGATIVE); URINE KETONE NEGATIVE (NEGATIVE); URINE LEUKOCYTE ESTERASE 2+ (NEGATIVE); URINE NITRATE NEGATIVE (NEGATIVE); URINE PROTEIN(semi-quant) 2+ (NEGATIVE)
[2024-07-02 17:29] LABS: URINE WBC 31-50 /hpf (0-3)
== END ==
LOC: LAB 16:35
DX: N39.0 Urinary tract infection, site not specified (principal)